=== PATIENT | male | born 1995 | race Two or more races ===

== ENCOUNTER 2017-07-15 14:10 | Emergency (ER) | payer OTHER ==
[2017-07-15] MEDS ORDERED: fentaNYL 100 MCG/2 ML INJ IVP ONE (14:24)
[2017-07-15] MEDS ORDERED: fentaNYL 100 MCG/2 ML INJ ONE (14:24)
--- NOTE | 2017-07-15 14:29 | EDPHY ---
H & P Time Seen by Provider: 07/15/17 14:22 HPI/ROS: CHIEF COMPLAINT: "I think I dislocated my shoulder" HISTORY OF PRESENT ILLNESS: 22-year-old [id number] male with prior history of right shoulder dislocation x5 was lifting a solar panel over head when he felt his right shoulder dislocate. Unable to reduce himself. No prior history of orthopedic consultation or surgery. No direct trauma or fall. PHYSICAL EXAM (Prior to examination, patient consented to physical exam, hands were washed and my usual and customary physical exam procedures followed) 1) GENERAL: Well-developed, well-nourished, alert and oriented. Appears to be in no acute distress. 2) HEAD: Normocephalic 3) HEENT: Pupils equal, round, reactive to light bilaterally. 4) LUNGS: Breathing comfortably. 5) MUSCULOSKELETAL: Lateral step-off anterior fullness consistent with dislocation. Bilateral deltoid sensation intact. Radial ulnar median nerve function intact. Soft compartments. Normal coloration. 6) SKIN: Intact 7) VASCULAR: pulses and cap refill present are brisk 8) NEUROLOGIC: Radial, ulnar, median nerve function intact with no deficits appreciated on exam DIFFERENTIAL DIAGNOSIS: in no particular order including but not limited to fracture, sprain, compartment syndrome Procedure: Dislocation reduction. . The dislocation of the right shoulder was reduced using traction and counter traction technique without complications. Post reduction the patient's neurovascular exam is normal. Post reduction x-ray demonstrates reduction of the joint to the anatomic position. The procedure was performed by myself. Procedure: Splint A sling was applied by ER nuclear monitoring technician. After application of the splint I returned and re-examined the patient. The splint was adequately immobilizing the joint and distal to the splint the patient's circulation and sensation were intact. Patient shows no signs of compartment syndrome. Was given orthopedic precautions. Smoking Status: Never smoked Constitutional: Initial Vital Signs Temperature (C) 36.6 C 07/15/17 14:12 Heart Rate 63 07/15/17 14:12 Respiratory Rate 18 07/15/17 14:12 Blood Pressure 159/94 H 07/15/17 14:12 O2 Sat (%) 98 07/15/17 14:12 O2 Delivery Mode Room Air Allergies/Adverse Reactions: No Known Allergies Allergy (Unverified 07/15/17 14:14) Home Medications: Medication Instructions Recorded NK [No Known Home Meds] 07/15/17 MDM/Departure - MDM Imaging Results: Imaging Impressions Shoulder X-Ray 07/15/17 14:20 Impression: Anterior dislocation of the right shoulder. Questionable underlying osseous Bankart lesion. Shoulder X-Ray 07/15/17 15:08 Impression: Anatomic alignment following reduction. Images reviewed by myself Medications Given: Discontinued Medications Fentanyl (Sublimaze) 100 mcg IVP EDNOW ONE Stop: 07/15/17 14:25 Last Admin: 07/15/17 14:25 Dose: 100 mcg Lorazepam (Ativan Injection) 1 mg IVP EDNOW ONE Stop: 07/15/17 14:39 Last Admin: 07/15/17 14:40 Dose: Not Given ED Course/Re-evaluation: Care of patient under supervision of secondary supervising physician Dr Madera with whom I discussed case. Patient was re-evaluated with serial examinations. Shoulder has been reduced. Recommend orthopedic follow-up. Recommend no overhead work and similar usual and customary precautions. - Depart Disposition: Home, Routine, Self-Care Clinical Impression: Recurrent dislocation, right shoulder Condition: Good Instructions: Shoulder Dislocation (ED) Additional Instructions: Return to the ER immediately if you experience discoloration, have worsening pain, numbness, tingling, or any other symptoms that concern you. If you received x-rays in the emergency department today, be advised, that ligamentous , tendon, muscular, and other non-bony injury cannot be fully ruled out. Try to keep your affected extremity elevated above the level of your chest, and keep cold packs on the affected area, for the next 48 hours. Do not perform overhead work. Stand Alone Forms: Work Limited Duty Referrals: Julián Bhagat MD [Medical Doctor] - 2-3 days, call for appt.
[2017-07-15] MEDS ORDERED: LORazepam 2 MG/ML INJ IVP ONE (14:38)
[2017-07-15] MEDS ORDERED: LORazepam 2 MG/ML INJ ONE (14:39)
[2017-07-15 15:16] VITALS: BP 125/74
== END 2017-07-15 15:48 | disposition home or self-care (01) ==
PROC: 0RSJXZZ Reposition Right Shoulder Joint, External Approach (ICD-10-PCS; principal; 2017-07-15)
DX: M24.411 Recurrent dislocation, right shoulder (principal)
CPT/HCPCS: 96374; A4565; J2060; J3010